=== PATIENT | female | born 1970 | race Caucasian/White ===

== ENCOUNTER 2016-11-15 08:23 | Emergency (ER) | payer MEDICAID ==
[~2016-11-15] VITALS: Ht 160 cm; Wt 72.0 kg
[~2016-11-15 08:23] MED LIST: FOLI1TAB7 PO; IBUP-1222 PO; OXYC1TAB7 PO
[2016-11-15] MEDS ORDERED: OMEP-110 PO (08:55)
[2016-11-15] MEDS ORDERED: AMLO5TAB2 PO (08:56)
[2016-11-15] MEDS ORDERED: FERR500P8 PO (08:57)
[2016-11-15] MEDS ORDERED: HYDROmorphone 2 MG/ML, 1ML ONE (09:08)
[2016-11-15] MEDS ORDERED: ONDANSETRON ODT 4 MG ONE ×2 (09:08→10:28)
[2016-11-15 09:25] LABS: HEMATOCRIT 36.6 % (34.6-47.8); HEMOGLOBIN 11.9 g/dL (11.7-16.4)
[2016-11-15 09:39] LABS: ANISOCYTOSIS 2+; MICROCYTOSIS 1+
[2016-11-15 09:40] LABS: HYPOCHROMIA 1+; OVALOCYTES 1+; POLYCHROMASIA 1+
[2016-11-15] MEDS ORDERED: ONDANSETRON ODT 4 MG PO ONE ×2 (10:00→10:30)
[2016-11-15] MEDS ORDERED: HYDROmorphone 2 MG/ML, 1ML IM ONE (10:00)
[2016-11-15 10:31] LABS: PATH.CAST-FLAG NOT PRESENT; SPERM-FLAG NOT PRESENT; SRC-FLAG NOT PRESENT; XTAL-FLAG NOT PRESENT; YLC-FLAG NOT PRESENT
[2016-11-15 11:23] VITALS: BP 118/74
== END 2016-11-15 11:25 | disposition home or self-care (01) ==
LOC: ED 10:16
DX: G89.29 Other chronic pain (principal); R10.30 Lower abdominal pain, unspecified; N92.0 Excessive and frequent menstruation with regular cycle; N93.8 Other specified abnormal uterine and vaginal bleeding
CPT/HCPCS: 36415; 76830; 81001; 84703; 85025; 96372; 99285; J1170; Q0162

== ENCOUNTER 2017-10-12 10:32 | Inpatient (IN) | payer MEDICAID, OTHER ==
[~2017-10-12] VITALS: Ht 160 cm; Wt 79.8 kg
[~2017-10-12 10:32] MED LIST changes: +AMLO5TAB2 PO; +FERR500P8 PO; +OMEP-110 PO
[2017-10-12] MEDS ORDERED: MAALOX/HYOSCYAMINE/LIDOCAINE 45 ML BTL ONE (11:19)
[2017-10-12] MEDS ORDERED: SODIUM CHLORIDE FLUSH 10ML SYR IVF ONE (11:30)
[2017-10-12] MEDS ORDERED: MAALOX/HYOSCYAMINE/LIDOCAINE 45 ML BTL PO ONE (11:30)
[2017-10-12 11:42] LABS: BASOPHILS # (AUTO) 0.07 x10^3/uL (0-0.1); BASOPHILS % (AUTO) 1 % (0-1); EOSINOPHILS # (AUTO) 0.04 x10^3/uL (0-0.4); EOSINOPHILS % (AUTO) 0 % (1-7); LYMPHOCYTES # (AUTO) 1.57 x10^3/uL (1-3.4); LYMPHOCYTES % (AUTO) 18 % (22-44); MD NO; MEAN CORPUSCULAR HEMOGLOBIN 22.3 pg (27.0-34.8); MEAN CORPUSCULAR HGB CONC 32.3 g/dL (32.4-35.8); MEAN CORPUSCULAR VOLUME 69.1 fL (80-100); MEAN PLATELET VOLUME 8.9 fL (7.4-10.4); MONOCYTES # (AUTO) 0.51 x10^3/uL (0.2-0.8); MONOCYTES % (AUTO) 6 % (2-9); NEUTROPHILS # (AUTO) 6.42 x10^3/uL (1.8-6.8); NEUTROPHILS % (AUTO) 75 % (42-75); PLATELET COUNT 316 x10^3/uL (130-400); RED CELL DISTRIBUTION WIDTH 18.5 % (9.6-15.2)
[2017-10-12 11:56] LABS: ALBUMIN 3.3 g/dL (3.4-5.0); ANION GAP 8 mmol/L (5-15); CALCIUM 8.4 mg/dL (8.5-10.1); CHLORIDE 107 mmol/L (98-107)
[2017-10-12 12:02] LABS: ALANINE AMINOTRANSFERASE 21 U/L (12-78); ALKALINE PHOSPHATASE 95 U/L (45-117); BILIRUBIN,TOTAL 0.2 mg/dL (0.2-1.0); CREATININE 0.82 mg/dL (0.55-1.02); TOTAL PROTEIN 7.1 g/dL (6.4-8.2); TROPONIN I 0.071 ng/mL (0.000-0.045)
[2017-10-12] MEDS ORDERED: ASPIRIN 325 MG TABLET PO ONE (12:46)
[2017-10-12] MEDS ORDERED: ASPIRIN 325 MG TABLET ONE (13:01)
[2017-10-12] MEDS ORDERED: POLYETHYLENE GLYCOL 17 GM PACKET PO PRN (13:30)
[2017-10-12] MEDS ORDERED: DOCUSATE 100 MG CAPSULE PO PRN (13:30)
[2017-10-12] MEDS ORDERED: [UNRECOGNIZED DRUG - OTHER] PO SCH (13:30)
[2017-10-12] MEDS ORDERED: ENOXAPARIN 40 MG/0.4 ML SQ SCH (13:30)
[2017-10-12] MEDS ORDERED: NITROGLYCERIN 0.4 MG BOTTLE (25 TABS) SL PRN (13:30)
[2017-10-12] MEDS ORDERED: BISACODYL 10 MG SUPP PR PRN (13:30)
[2017-10-12] MEDS ORDERED: ONDANSETRON 2MG/ML, 2ML IVPush PRN (13:30)
[2017-10-12] MEDS ORDERED: ACETAMINOPHEN PO SCH (13:30)
[2017-10-12] MEDS ORDERED: ENALAPRILAT 1.25 MG/ML, 2ML IVPush PRN (13:30)
[2017-10-12] MEDS ORDERED: OXYCODONE HCL PO SCH (13:30)
[2017-10-12] MEDS ORDERED: [UNRECOGNIZED DRUG - REMARK] MC SCH (14:30)
[2017-10-12 15:23] VITALS: BP 164/77
[2017-10-12 16:36] LABS: TROPONIN I 0.685 ng/mL (0.000-0.045)
[2017-10-12 19:09] VITALS: BP 132/83
[2017-10-12] MEDS: SODIUM CHLORIDE FLUSH 10ML SYR IVF SCH (21:24)
[2017-10-12] MEDS ORDERED: ATORVASTATIN 80 MG TABLET ONE (23:30)
[2017-10-12] MEDS ORDERED: METOPROLOL SUCCINATE 25 MG TAB.ER.24H ONE ×2 (23:30→23:35)
[2017-10-12] MEDS ORDERED: METOPROLOL TARTRATE 25 MG TABLET ONE (23:36)
[2017-10-12] MEDS: ATORVASTATIN 80 MG TABLET PO SCH (23:38)
[2017-10-12] MEDS: METOPROLOL TARTRATE 25 MG TABLET PO SCH (23:38)
[2017-10-12] MEDS ORDERED: HEPARIN 5,000 UNITS/ML, 1ML IV ONE (23:45)
[2017-10-12 23:56] VITALS: BP 110/72
[2017-10-13] MEDS: morphine SULFATE 10 MG/ML, 1ML IVPush PRN ×2 (00:25→03:49)
[2017-10-13] MEDS: HEPARIN 25,000 UNITS/500ML PMX 500 ML IV PRN (00:30)
[2017-10-13 00:43] VITALS: BP 116/76
[2017-10-13 05:48] VITALS: BP 111/75
[2017-10-13] MEDS ORDERED: ASPIRIN 325 MG TABLET EC PO SCH (06:00)
[2017-10-13 06:14] LABS: CHOL/HDL RATIO 4.8; LDL/HDL RATIO 2.2 (0.5-3.0)
[2017-10-13] MEDS: HEPARIN 5,000 UNITS/ML, 1ML IV PRN ×3 (06:38→21:12)
[2017-10-13] MEDS: METOPROLOL TARTRATE 25 MG TABLET PO SCH ×2 (06:48→18:00)
[2017-10-13 08:00] VITALS: BP 114/79
[2017-10-13] MEDS: SODIUM CHLORIDE FLUSH 10ML SYR IVF SCH ×2 (09:33→21:00)
[2017-10-13] MEDS: FERROUS SULFATE 325 MG TABLET PO SCH (09:33)
[2017-10-13] MEDS: AMLODIPINE 5 MG TABLET PO SCH (09:33)
[2017-10-13 14:54] VITALS: BP 134/82
[2017-10-13] MEDS: ACETAMINOPHEN 325 MG TABLET PO PRN (16:00)
[2017-10-13 18:36] VITALS: BP 116/77
[2017-10-13] MEDS: ATORVASTATIN 80 MG TABLET PO SCH (21:10)
[2017-10-14] MEDS: HEPARIN 25,000 UNITS/500ML PMX 500 ML IV PRN (01:24)
[2017-10-14 02:43] VITALS: BP 140/81
[2017-10-14 03:27] LABS: BASOPHILS # (AUTO) 0.02 x10^3/uL (0-0.1); BASOPHILS % (AUTO) 0 % (0-1); EOSINOPHILS # (AUTO) 0.09 x10^3/uL (0-0.4); EOSINOPHILS % (AUTO) 2 % (1-7); LYMPHOCYTES # (AUTO) 1.78 x10^3/uL (1-3.4); LYMPHOCYTES % (AUTO) 28 % (22-44); MD NO; MEAN CORPUSCULAR HEMOGLOBIN 21.7 pg (27.0-34.8); MEAN CORPUSCULAR HGB CONC 31.7 g/dL (32.4-35.8); MEAN CORPUSCULAR VOLUME 68.5 fL (80-100); MEAN PLATELET VOLUME 8.6 fL (7.4-10.4); MONOCYTES # (AUTO) 0.62 x10^3/uL (0.2-0.8); MONOCYTES % (AUTO) 10 % (2-9); NEUTROPHILS # (AUTO) 3.96 x10^3/uL (1.8-6.8); NEUTROPHILS % (AUTO) 61 % (42-75); PLATELET COUNT 299 x10^3/uL (130-400); RED BLOOD COUNT 4.99 x10^6/uL (3.82-5.3); RED CELL DISTRIBUTION WIDTH 18.2 % (9.6-15.2)
[2017-10-14 03:35] LABS: ANION GAP 6 mmol/L (5-15); CALCIUM 8.5 mg/dL (8.5-10.1); CHLORIDE 107 mmol/L (98-107); CREATININE 0.76 mg/dL (0.55-1.02); PROTHROMBIN TIME 10.3 Seconds (9.6-11.5)
[2017-10-14] MEDS: METOPROLOL TARTRATE 25 MG TABLET PO SCH ×2 (05:08→18:10)
[2017-10-14] MEDS: ASPIRIN 81 MG TABLET EC PO SCH (05:11)
[2017-10-14] MEDS: ACETAMINOPHEN 325 MG TABLET PO PRN ×2 (06:52→18:39)
[2017-10-14 07:08] VITALS: BP 110/73
[2017-10-14] MEDS: AMLODIPINE 5 MG TABLET PO SCH (08:47)
[2017-10-14] MEDS: SODIUM CHLORIDE FLUSH 10ML SYR IVF SCH ×2 (08:47→20:22)
[2017-10-14] MEDS: FERROUS SULFATE 325 MG TABLET PO SCH (08:47)
[2017-10-14] MEDS ORDERED: VERAPAMIL 2.5 MG/ML, 2ML ONE (11:43)
[2017-10-14] MEDS ORDERED: TICAGRELOR 90 MG TABLET ONE (11:43)
[2017-10-14] MEDS ORDERED: FENTANYL PF 100 MCG/2ML ONE ×2 (11:43→13:02)
[2017-10-14] MEDS ORDERED: MIDAZOLAM 1 MG/ML, 5ML ONE (11:43)
[2017-10-14] MEDS ORDERED: BIVALIRUDIN 250 MG ONE (11:44)
[2017-10-14] MEDS ORDERED: LIDOCAINE-MPF 2%, 2ML ONE (11:44)
[2017-10-14] MEDS ORDERED: HEPARIN 1,000 UNITS/ML, 10ML ONE (11:44)
[2017-10-14] MEDS ORDERED: ADENOSINE 90 MG/30 ML ONE (12:54)
[2017-10-14] MEDS ORDERED: MIDAZOLAM 1 MG/ML, 2ML ONE (13:01)
[2017-10-14] MEDS ORDERED: DIPHENHYDRAMINE 50 MG/ML, 1ML ONE (13:02)
[2017-10-14] MEDS ORDERED: BIVALIRUDIN 250 MG in DEXTROSE 5% 50 ML IV SCH (13:40)
[2017-10-14] MEDS ORDERED: CLOPIDOGREL 300 MG TABLET ONE (13:41)
[2017-10-14 14:00] VITALS: BP 139/90
[2017-10-14] MEDS ORDERED: ACETAMINOPHEN 325 MG TABLET PO PRN (14:00)
[2017-10-14] MEDS: SODIUM CHLORIDE 0.9% 1,000 ML IV SCH ×2 (14:34→21:40)
[2017-10-14 20:04] LABS: TROPONIN I 0.674 ng/mL (0.000-0.045)
[2017-10-14] MEDS: ATORVASTATIN 80 MG TABLET PO SCH (20:21)
[2017-10-14 20:24] VITALS: BP 119/74
[2017-10-14] MEDS: morphine SULFATE 10 MG/ML, 1ML IVPush PRN (20:38)
[2017-10-15 00:34] VITALS: BP 130/85
[2017-10-15 04:42] LABS: ALBUMIN 2.9 g/dL (3.4-5.0); ANION GAP 6 mmol/L (5-15); CALCIUM 8.3 mg/dL (8.5-10.1); CHLORIDE 107 mmol/L (98-107); CREATININE 0.83 mg/dL (0.55-1.02)
[2017-10-15 05:10] VITALS: BP 123/78
[2017-10-15] MEDS: SODIUM CHLORIDE 0.9% 1,000 ML IV SCH (05:11)
[2017-10-15] MEDS: METOPROLOL TARTRATE 25 MG TABLET PO SCH (05:11)
[2017-10-15] MEDS: ASPIRIN 81 MG TABLET EC PO SCH (05:11)
[2017-10-15 07:42] VITALS: BP 106/65
[2017-10-15] MEDS: AMLODIPINE 5 MG TABLET PO SCH (08:21)
[2017-10-15] MEDS: FERROUS SULFATE 325 MG TABLET PO SCH (08:21)
[2017-10-15] MEDS: SODIUM CHLORIDE FLUSH 10ML SYR IVF SCH (08:22)
[2017-10-15] MEDS ORDERED: CLOPIDOGREL 75 MG TABLET PO SCH (09:00)
[2017-10-15] MEDS ORDERED: METO25TA35 PO (10:52)
[2017-10-15] MEDS ORDERED: ATOR-2 PO (10:52)
[2017-10-15] MEDS ORDERED: CLOP75TA PO (10:52)
[2017-10-15] MEDS ORDERED: ASPI-621 PO (10:52)
== END 2017-10-15 12:15 | disposition home or self-care (01) | DRG 249 ==
LOC: ED 12:40 → EDIP 12:41 → INTOOBSV 12:41 → OBSVTOIN 12:41 → ED 12:43 → 5SO 13:45 → DCLOUNGE 10-15 11:49
PROVIDERS: ADMIT Hospitalist; ATTEND Hospitalist
PROC: 02703EZ Dilation of Coronary Artery, One Artery with Two Intraluminal Devices, Percutaneous Approach (ICD-10-PCS; principal; 2017-10-14)
PROC: 4A023N7 Measurement of Cardiac Sampling and Pressure, Left Heart, Percutaneous Approach (ICD-10-PCS; 2017-10-14)
PROC: B2111ZZ Fluoroscopy of Multiple Coronary Arteries using Low Osmolar Contrast (ICD-10-PCS; 2017-10-14)
PROC: B2151ZZ Fluoroscopy of Left Heart using Low Osmolar Contrast (ICD-10-PCS; 2017-10-14)
PROC: 4A033BC Measurement of Arterial Pressure, Coronary, Percutaneous Approach (ICD-10-PCS; 2017-10-14)
DX: I21.4 Non-ST elevation (NSTEMI) myocardial infarction (principal); E44.1 Mild protein-calorie malnutrition; K50.90 Crohn's disease, unspecified, without complications; I11.9 Hypertensive heart disease without heart failure; E28.2 Polycystic ovarian syndrome; E78.2 Mixed hyperlipidemia; F17.210 Nicotine dependence, cigarettes, uncomplicated; G89.29 Other chronic pain; R00.1 Bradycardia, unspecified; R73.9 Hyperglycemia, unspecified; I25.10 Atherosclerotic heart disease of native coronary artery without angina pectoris; K21.9 Gastro-esophageal reflux disease without esophagitis; Z82.49 Family history of ischemic heart disease and other diseases of the circulatory system; Z83.3 Family history of diabetes mellitus; Z68.31 Body mass index [BMI] 31.0-31.9, adult
CPT/HCPCS: 36415; 71045; 80048; 80053; 80061; 82040; 83605; 83690; 84484; 85018; 85025; 85520; 85610; 92928; 93005; 93306; 93458; 93571; 93572; 99156; 99157; 99285; C1769; C1876; C1894; J0153; J0583; J1644; J2250; J3010; J3490; C1725; C1887; J1200; J2270; Q9967

== ENCOUNTER 2019-05-22 08:52 | Emergency (ER) | payer SELFPAY ==
[~2019-05-22] VITALS: Ht 160 cm; Wt 78.0 kg
[~2019-05-22 08:52] MED LIST changes: +AMLO-150 PO; -AMLO5TAB2 PO; +ASPI81TA45 PO; +ATOR-2 PO; +CENTRUM CHEWAB1 EACH PO; +CLOP75TA PO; -FOLI1TAB7 PO; +METO25TA35 PO
[2019-05-22 08:54] VITALS: BP 147/105
--- NOTE | 2019-05-22 09:53 | NUR ---
LABS DRAWN, STRAIGHT CATH COLLECTED. PT PROVIDED WITH DISPOSABLE PANTIES AND PADS. PT TO ULTRASOUND AT THIS TIME.
[2019-05-22 10:06] LABS: BASOPHILS # (AUTO) 0.02 x10^3/uL (0-0.1); BASOPHILS % (AUTO) 0 % (0-1); EOSINOPHILS # (AUTO) 0.03 x10^3/uL (0-0.4); EOSINOPHILS % (AUTO) 0 % (1-7); LYMPHOCYTES # (AUTO) 1.32 x10^3/uL (1-3.4); LYMPHOCYTES % (AUTO) 17 % (22-44); MD NO; MEAN CORPUSCULAR HEMOGLOBIN 27.4 pg (27.0-34.8); MEAN CORPUSCULAR HGB CONC 33.2 g/dL (32.4-35.8); MEAN CORPUSCULAR VOLUME 82.3 fL (80-100); MEAN PLATELET VOLUME 8.9 fL (7.4-10.4); MONOCYTES # (AUTO) 0.44 x10^3/uL (0.2-0.8); MONOCYTES % (AUTO) 6 % (2-9); NEUTROPHILS # (AUTO) 6.17 x10^3/uL (1.8-6.8); NEUTROPHILS % (AUTO) 77 % (42-75); PLATELET COUNT 272 x10^3/uL (130-400); RED BLOOD COUNT 5.23 x10^6/uL (3.82-5.3); RED CELL DISTRIBUTION WIDTH 16.2 % (9.6-15.2)
[2019-05-22 10:08] LABS: MICROSCOPIC NOT IND
[2019-05-22 10:10] LABS: ALBUMIN 3.6 g/dL (3.4-5.0); ANION GAP 7 mmol/L (5-15); CALCIUM 8.9 mg/dL (8.5-10.1); CHLORIDE 109 mmol/L (98-107); CREATININE 0.82 mg/dL (0.55-1.02)
[2019-05-22 10:13] LABS: CULTURE INDICATED? NO
[2019-05-22 10:17] LABS: INTERNATIONAL NORMALIZED RATIO 0.95 (0.93-1.1); PROTHROMBIN TIME 10.1 Seconds (9.6-11.5)
[2019-05-22 11:50] LABS: HCG UR SG 1.023 (1.003-1.030)
== END 2019-05-22 12:13 | disposition home or self-care (01) ==
LOC: ED 10:28
DX: N92.0 Excessive and frequent menstruation with regular cycle (principal); D25.9 Leiomyoma of uterus, unspecified; N93.8 Other specified abnormal uterine and vaginal bleeding; I10 Essential (primary) hypertension; K21.9 Gastro-esophageal reflux disease without esophagitis; I25.2 Old myocardial infarction; F17.200 Nicotine dependence, unspecified, uncomplicated
CPT/HCPCS: 36415; 76830; 80048; 81003; 81025; 82040; 85025; 85610; 99284